=== PATIENT | female | born 1985 | race Caucasian/White ===

== ENCOUNTER 2019-06-30 09:27 | Outpatient (REF) | payer MEDICARE, MEDICAID, SELFPAY ==
[2019-06-30 13:24] LABS: Chol HDL Ratio 2.24 mg/dL (0.0-4.40); Cholesterol 197 mg/dL (0-200); Glucose 116 mg/dL (65-115); HDL Cholesterol 88 mg/dL (60-100); LDL Cholesterol Calculated 97 mg/dL (50-129); Triglycerides 59 mg/dL (0-150)
[2019-06-30 14:15] LABS: Estmated Average Glucose 103; Hemoglobin A1C 5.2 % (4.0-6.0)
== END 2019-06-30 09:28 | disposition home or self-care (01) ==
LOC: LAB 09:27
PROVIDERS: Family Provider Family Medicine; Visit Provider Dermatology
DX: Z01.89 Encounter for other specified special examinations (principal)
CPT/HCPCS: 80061; 82947; 83036

== ENCOUNTER 2020-02-14 12:46 | Emergency (ER) | payer MEDICARE, MEDICAID, SELFPAY ==
--- NOTE | 2020-02-14 12:53 | XRR_ITS ---
PROCEDURE INFORMATION: Exam: XR Chest, 1 View Exam date and time: 02/14/2020 12:54 PM Age: 34 years old Clinical indication: Chest pain; Type not specified. TECHNIQUE: Imaging protocol: XR of the chest Views: 1 view. COMPARISON: No relevant prior studies available. FINDINGS: Lungs: No lung consolidation or pulmonary edema. Pleural space: No pleural effusion or pneumothorax. Heart/Mediastinum: The cardiac silhouette is not enlarged. The mediastinal contours are normal. Bones/joints: No acute osseous abnormality. XR/XR chest 1V portable [id number] IMPRESSION: Normal.
--- NOTE | 2020-02-14 12:53 | ECG_ITS ---
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 Measurements Intervals [place] Rate: 83 P: 47 RI: 157 QRS: 63 QRSD: 127 T: 47 QT: 347 QTc: 410 Interpretive Statements SINUS RHYTHM RIGHT BUNDLE BRANCH BLOCK [120+ ms QRS DURATION, UPRIGHT V1, 40+ ms S IN I/aVL/V4/V5/V6] No previous ECG available for comparison Electronically Signed On 02-14-2020 13:53:11 CDT by Preethi Buchanan M.D. [id number] f
[2020-02-14 12:58] VITALS: BP 119/79; PULSE 85; RESP 18; TEMP 36.6; O2SAT 99; BMI 30.4
--- NOTE | 2020-02-14 13:14 | ED_ITS ---
HPI - General Adult General: Chief complaint: General Medical Stated complaint: covid +, CP, cough, fatigue Time Seen by Provider: 02/14/20 13:02 Source: patient Mode of arrival: ambulatory Limitations: no limitations History of Present Illness: HPI narrative: 34-year-old female who states she has been feeling ill over the last week. She tested positive for COVID on Wednesday. She states she has had low-grade fevers along with slight chest pain. Denies any worsening or improving factors. Patient's vital signs here are normal. She denies any vomiting or diarrhea. Associated symptoms: Reports chest pain and dyspnea; Deny headache(s), nausea, rash or vomiting Review of Systems Const: Denies: fever(s), chills, body aches or change in appetite Eyes: Denies: blurry vision or eye discomfort ENMT: Denies: throat pain or dental pain Card: Reports: chest pain Resp: Reports: dyspnea GI: Denies: abdominal pain, nausea, vomiting or diarrhea : Denies: dysuria Musc: Denies: neck pain or back pain Skin/Breast: Denies: rash Neuro: Denies: headache(s) Psych: Denies: depression Jagdish/Lymph: Denies: easy bruising All/Imm: Denies: urticaria PFSH ED PFSH: Social History Smoking and tobacco status: never smoked Alcohol intake: never Substance/Drug Use: never Physical Exam Const: COMMON NORMALS: no acute distress, patient oriented x3 and healthy appearing HENMT: COMMON NORMALS: normocephalic and atraumatic HEAD & SCALP: normocephalic and atraumatic Eye: COMMON NORMALS: Equal, round and reactive pupils present and EOMs intact bilaterally PUPIL: Yes Equal, round and reactive pupils present Neck/C-Spine: COMMON NORMALS: full ROM and supple Chest: COMMONS NORMALS: normal inspection of the chest and normal palpation of entire chest wall Resp: COMMON NORMALS: normal respiratory effort, No retractions, No use of accessory muscles and clear to auscultation bilaterally AUSCULTATION: clear to auscultation bilaterally Cardio: COMMON NORMALS: regular rate, regular rhythm and No murmurs present (Cardio) RATE: regular rate RHYTHM: regular rhythm GI: COMMON NORMALS: Normal to inspection, nondistended, normoactive bowel sounds present, Soft to palpation, non-tender and no masses PALPATION: Yes Soft to palpation Extremity: COMMON NORMALS: normal to inspection and full ROM Neuro: COMMON NORMALS: patient oriented x3, moves all extremities and no focal motor deficits Psych: COMMON NORMALS: mental status grossly normal, Normal thought process present and cooperative THOUGHT PROCESS: Normal thought process present Skin: COMMON NORMALS: no rashes or lesions noted and no wounds GENERAL SKIN EXAM: no rashes or lesions noted Course Vital Signs: Vital signs: Vital Signs Temperature 97.8 F 02/14/20 12:58 Pulse Rate 86 02/14/20 13:34 Respiratory Rate 17 02/14/20 13:34 Blood Pressure 124/74 02/14/20 13:34 Pulse Oximetry 98 02/14/20 13:34 MDM - General Adult MDM Narrative: Medical decision making narrative: Lima presents here with cough chest pain and fever. She is also having some slight weakness is likely all from COVID. Her blood work daily and troponin here is normal. X-ray is normal as well. Patient's vital signs including oxygen saturation of been normal. She is stable for discharge and is to follow-up with PCP and return if worsening. Lab Data: Labs: Lab Results 02/14/20 02/14/20 02/14/20 Range/Units 13:15 13:15 13:15 WBC 6.2 (4.0-10.0) 10^3/ uL RBC 4.58 (4.1-5.3) 10^6/u L Hgb 13.7 (11.5-15.3) g/dL Hct 42.4 (37.0-47.0) % MCV 92.6 (81-99) fL MCH 29.9 (28.0-34.0) pg MCHC 32.3 (30.0-36.0) g/dL RDW 12.6 (12.1-15.1) % Plt Count 217 (130-400) 10^3/c mm MPV 9.6 (7.4-10.4) fL Neut % (Auto) 55.9 % Lymph % (Auto) 36.4 % [place] % (Auto) 6.5 % Eos % (Auto) 0.6 % Baso % (Auto) 0.3 % Neut # (Auto) 3.44 (1.8-7.7) 10^3/u L Lymph # (Auto) 2.2 (0.8-4.8) 10^3/u L [place] # (Auto) 0.4 (0.2-0.9) 10^3/u L Eos # (Auto) 0.0 (0.0-0.8) 10^3/u L Baso # (Auto) 0.0 (0.0-0.1) 10^3/u L Nucleated RBC % (a uto) 0 % Nucleated RBCs # 0.0 /100WBC Sodium 139 (136-145) mmol/L Potassium 3.8 (3.5-5.1) mmol/L Chloride 107 (98-107) mmol/L Carbon Dioxide 22 (22-29) mmol/L Anion Gap 13.8 (5-19) BUN 10 (6-20) mg/dL Creatinine 0.9 (0.5-0.9) mg/dL Glucose 101 (65-115) mg/dL Calculated Osmolal ity 287 (285-295) mOsm/k g Calcium 9.4 (8.5-10.5) mg/dL Total Bilirubin 0.4 (0.15-1.2) mg/dL AST 28 (0-32) U/L Alkaline Phosphata se 70 (35-105) IU/L Troponin T Baselin e 6 (0-10) ng/L Total Protein 7.4 (6.6-8.7) g/dL Albumin 4.4 (3.5-5.2) g/dL Globulin 3.0 (1.3-4.6) g/dL Imaging Data^: CXR: Radiologist's impression: [address] [address] XRay Report Signed Patient: Shiloh Heredia Unit #: [id number] : 1985 Age/Sex: 34 / F ADM Date: 02/14/20 Loc: ER Room/Bed: Attending Dr: Ordering Provider/Ordering MD: Jose Sawyer MD Date of Service: 02/14/20 Procedure(s): XR chest 1V portable [id number] Accession Number(s): [id number] Report Number: [id number] PROCEDURE INFORMATION: Exam: XR Chest, 1 View Exam date and time: 02/14/2020 12:54 PM Age: 34 years old Clinical indication: Chest pain; Type not specified. TECHNIQUE: Imaging protocol: XR of the chest Views: 1 view. COMPARISON: No relevant prior studies available. FINDINGS: Lungs: No lung consolidation or pulmonary edema. Pleural space: No pleural effusion or pneumothorax. Heart/Mediastinum: The cardiac silhouette is not enlarged. The mediastinal contours are normal. Bones/joints: No acute osseous abnormality. XR/XR chest 1V portable [id number] IMPRESSION: Normal. EKG Data^: EKG 1: Attestation: I personally reviewed and interpreted this EKG as follows: EKG interpretation date: 02/14/20 EKG interpretation time: 13:09 Interpretation: nsr hr [address] with no st or t wave abnormalities qrs 127 [id number] Computer generated interpretation: Chest X-Ray 02/14/20 12:53 IMPRESSION: Normal. Discharge Plan Discharge Patient Disposition: Home Clinical Impression: COVID-19 Condition: Stable Prescriptions: No Action zonisamide 100 mg capsule 100 mg PO BEDTIME RF: 0 dextroamphetamine-amphetamine 10 mg capsule,extended release 24hr 1 cap PO DAILY RF: 0 Aleve-D Sinus and Cold 220-120 mg Tablet Extended Release 12 Hr 1 tab PO DAILY RF: 0 bupropion HCl 300 mg tablet extended release 24 hr 300 mg PO DAILY RF: 0 Discharge Orders: Discharge Order (Routine); Ordered 02/14/20 Ordered By: Jose Sawyer Referrals: Justin Corley MD [Family Provider] - Discharge Diet: Advance as tolerated Discharge Activity: Resume usual activity Patient Instructions: Chest Pain (ED) Coding Level of Care Code ED Pencil Inspector for Chg Fwd Exam Comprehensive
[2020-02-14 13:22] LABS: Basophils % 0.3 %; Eosinophils % 0.6 %; Hematocrit 42.4 % (37.0-47.0); Hemoglobin 13.7 g/dL (11.5-15.3); Lymphocytes # 2.2 10^3/uL (0.8-4.8); Lymphocytes % 36.4 %; Mean Corpuscular HGB Conc 32.3 g/dL (30.0-36.0); Mean Corpuscular Hemoglobin 29.9 pg (28.0-34.0); Mean Corpuscular Volume 92.6 fL (81-99); Mean Platelet Volume 9.6 fL (7.4-10.4); Monocytes # 0.4 10^3/uL (0.2-0.9); Monocytes % 6.5 %; Neutrophils # 3.44 10^3/uL (1.8-7.7); Neutrophils % 55.9 %; Nucleated Red Blood Cells % 0 %; Platelet Count 217 10^3/cmm (130-400); Red Blood Count 4.58 10^6/uL (4.1-5.3); Red Cell Distribution Width 12.6 % (12.1-15.1); White Blood Count 6.2 10^3/uL (4.0-10.0)
[2020-02-14] MEDS: sodium chloride 0.9% 1,000 ML 999 ML IV (13:29)
[2020-02-14 13:34] VITALS: BP 124/74; PULSE 86; RESP 17; O2SAT 98
[2020-02-14 13:46] LABS: Alanine Aminotransferase 62 U/L (0-33); Albumin Level 4.4 g/dL (3.5-5.2); Alkaline Phosphatase 70 IU/L (35-105); Anion Gap 13.8 (5-19); Aspartate Amino Transferase 28 U/L (0-32); Blood Urea Nitrogen 10 mg/dL (6-20); Calcium 9.4 mg/dL (8.5-10.5); Carbon Dioxide 22 mmol/L (22-29); Chloride 107 mmol/L (98-107); Glomerular Filtration Rate 72.6 mL/min (90-130); Glucose 101 mg/dL (65-115); Osmolality Calculated 287 mOsm/kg (285-295); Potassium 3.8 mmol/L (3.5-5.1); Sodium 139 mmol/L (136-145); Total Bilirubin 0.4 mg/dL (0.15-1.2); Total Protein 7.4 g/dL (6.6-8.7)
[2020-02-14 13:50] LABS: Troponin(5th) Baseline 6 ng/L (0-10)
[2020-02-14 14:12] VITALS: BP 120/77; PULSE 81; RESP 18; O2SAT 99
== END 2020-02-14 14:13 | disposition home or self-care (01) ==
PROVIDERS: Emergency Provider Emergency Medicine; Family Provider Family Medicine
DX: U07.1 COVID-19 (principal)
CPT/HCPCS: 12345; 71045; 80053; 84484; 85025; 93005; 96360; 99283; 99284; J7030

== ENCOUNTER 2020-07-12 13:15 | Outpatient (CLI) | payer MEDICARE, MEDICAID, SELFPAY ==
--- NOTE | 2020-07-12 13:17 | MM_ITS ---
WS: [id number] SCREENING DIGITAL MAMMOGRAM WITH CAD HISTORY: SCREENING COMPARISON: None available. Bilateral CC and MLO views submitted. Computer aided detection analyzed. Breast composition: The breasts are extremely dense, which lowers the sensitivity of mammography. Wel l-circumscribed 15 x 18 mm nodule in the RIGHT breast at 9:00 anteriorly. There is additional asymmet ry in the posterior lateral breast towards the axillary tail measuring 14 mm. Otherwise very dense br east tissue. No calcifications or architectural distortion. MM/[place] [id number] IMPRESSION: BI-RADS: 0-Incomplete: Need additional imaging evaluation FOLLOW UP: Need Additional Imaging RIGHT breast: Spot compression views (CC and MLO). True ML. Ultrasound to follo w if abnormality persists.
== END 2020-07-12 13:16 | disposition home or self-care (01) ==
LOC: RADSHAW 13:16
PROVIDERS: PCP Family Medicine; Visit Provider Family Medicine
DX: Z12.31 Encounter for screening mammogram for malignant neoplasm of breast (principal); N63.15 Unspecified lump in the right breast, overlapping quadrants
CPT/HCPCS: 77067

== ENCOUNTER 2020-07-23 08:31 | Outpatient (CLI) | payer MEDICARE, MEDICAID, SELFPAY ==
--- NOTE | 2020-07-23 08:35 | US_ITS ---
WS: [id number] ADDITIONAL VIEWS RIGHT BREAST RIGHT breast ultrasound, limited HISTORY: ABNORMAL MAMMOGRAM COMPARISON: 07/12/2020 Compression views right CC and MLO projection. True ML also submitted. Ovoid nodule persists at 9:00 in the anterior breast measuring 18 mm in diameter. The asymmetry against the posterior chest wall re solves. RIGHT breast ultrasound, limited. Ultrasound directed to the upper outer quadrant. The large nodule seen by mammography corresponds to a mass at 1 cm from the nipple at 9:00 measuring 1.8 x 2.3 x 1.0 cm. A slightly lobulated cyst with a fibroadenoma. There are additional smaller similar hypoechoic masses at 9-10 o'clock. There is a tin y cyst at 12:00 axis diameter 4 mm. US/US breast RT limited* [id number] IMPRESSION: BI-RADS: 2-Benign FOLLOW-UP: Age 42 There are several masses in the RIGHT breast along the 9-10 o'clock axis. These are all similar and most consistent with fibroadenomas. No additional workup a t this time is thought necessary. Patient also describes benign biopsy in the L EFT breast. Alternatively, if the patient desires the largest mass could easily be biopsied for pathologic correlation.
== END 2020-07-23 08:32 | disposition home or self-care (01) ==
LOC: RADSHAW 08:33
PROVIDERS: PCP Family Medicine; Visit Provider Family Medicine
DX: R92.8 Other abnormal and inconclusive findings on diagnostic imaging of breast (principal); N63.15 Unspecified lump in the right breast, overlapping quadrants
CPT/HCPCS: 76642; 77065

== ENCOUNTER → 2021-04-04 10:48 | Outpatient (BNVA) | payer MEDICARE, MEDICAID, SELFPAY | PROVIDERS: PCP Family Medicine; Visit Provider Internal Medicine | DX: L68.0 Hirsutism (principal); R53.83 Other fatigue; R79.89 Other specified abnormal findings of blood chemistry; Z98.890 Other specified postprocedural states; S06.9X9S Unspecified intracranial injury with loss of consciousness of unspecified duration, sequela; X58.XXXS Exposure to other specified factors, sequela | CPT/HCPCS: 99204 ==

== ENCOUNTER 2021-06-09 15:06 | Outpatient (CLI) | payer MEDICARE, MEDICAID, SELFPAY ==
--- NOTE | 2021-06-09 15:45 | US_ITS ---
WS: [id number] TRANSVAGINAL PELVIC ULTRASOUND HISTORY: rule out malignancy COMPARISON: None available. Uterus: 7.4 cm x 6.2 cm x 4.8 cm. Retroverted uterus. Uterus is difficult to visualize due to the ret roversion. Heterogeneous mass with shadowing slightly hyperechoic to the adjacent myometrium. This ma ss is centered in the central uterus distorting the endometrium. Mass measures approximately 5.4 x 3. 8 x 3.6 cm. Endometrium: The endometrium is not visualized as a separate structure. There is a large mass within the central uterus. There is shadowing from this mass to suspect this is probably a submucosal fibroi d displacing the endometrium. Right ovary: 3.2 cm x 1.6 cm x 2.9 cm. Normal size ovary. There are several small peripheral follicle s. Normal vascularity. Left ovary: 2.9 cm x 2.4 cm x 2.1 cm. Normal size ovary with small peripheral follicles. Normal vascu larity. Trace free fluid. US/US transvaginal [id number] IMPRESSION: 1. Enlarged retroverted uterus. 2. There is large mass in the central uterus distorting the endometrium. Favor this is probably a submucosal fibroid measuring 5.4 x 3.8 x 3.6 cm. 3. Normal size ovary with multiple small peripheral follicles.
== END 2021-06-09 15:07 | disposition home or self-care (01) ==
LOC: RAD 15:11
PROVIDERS: PCP Family Medicine; Visit Provider Internal Medicine
DX: L68.0 Hirsutism (principal); R79.89 Other specified abnormal findings of blood chemistry; Z98.890 Other specified postprocedural states; N85.4 Malposition of uterus; N85.8 Other specified noninflammatory disorders of uterus
CPT/HCPCS: 76830

== ENCOUNTER → 2021-06-17 14:35 | Outpatient (BNVA) | payer MEDICARE, MEDICAID, SELFPAY | PROVIDERS: PCP Family Medicine; Visit Provider Internal Medicine | DX: E28.2 Polycystic ovarian syndrome (principal); L68.0 Hirsutism; R53.82 Chronic fatigue, unspecified; R79.89 Other specified abnormal findings of blood chemistry; D24.1 Benign neoplasm of right breast; R63.5 Abnormal weight gain; Z68.29 Body mass index [BMI] 29.0-29.9, adult | CPT/HCPCS: 99215 ==

== ENCOUNTER → 2021-12-10 14:44 | Outpatient (BNVA) | payer MEDICARE, MEDICAID, SELFPAY | PROVIDERS: PCP Family Medicine; Visit Provider Internal Medicine | DX: R53.82 Chronic fatigue, unspecified (principal); L68.0 Hirsutism; R79.89 Other specified abnormal findings of blood chemistry; E28.2 Polycystic ovarian syndrome; D24.1 Benign neoplasm of right breast; E88.81 Metabolic syndrome and other insulin resistance; R63.5 Abnormal weight gain; Z68.28 Body mass index [BMI] 28.0-28.9, adult | CPT/HCPCS: 99214 ==

== ENCOUNTER → 2022-03-24 13:40 | Outpatient (BNVA) | payer MEDICARE, MEDICAID, SELFPAY | PROVIDERS: PCP Family Medicine; Visit Provider Otolaryngology | DX: H91.93 Unspecified hearing loss, bilateral (principal); H93.13 Tinnitus, bilateral; H92.03 Otalgia, bilateral; M26.623 Arthralgia of bilateral temporomandibular joint | CPT/HCPCS: 99203 ==

== ENCOUNTER 2022-06-12 14:04 | Outpatient (CLI) | payer MEDICARE, MEDICAID, SELFPAY ==
--- NOTE | 2022-06-12 14:13 | MR_ITS ---
WS: [id number] MRI HEAD WITH CONTRAST TECHNIQUE: Sagittal T1, T2 axial, T2 axial FLAIR, axial susceptibility weighted imaging, axial diffus ion weighted images, and coronal T2 images were obtained. Pre and post-T1 axial and post T1 coronal i mages. ADC and FSPGR images. CLINICAL INFORMATION: CLOSED HEAD INJURY COMPARISON: FINDINGS: No evidence of restricted diffusion to suggest acute ischemia. Ventricular system and basal cisterns are patent. No hemosiderin on the susceptibly weighted images. Normal posterior fossa. Norm al vascular flow voids at the skull base. No extra-axial fluid collections. No evidence of mass or ma ss effect. Paranasal sinuses and mastoid air cells are well aerated. Normal posterior nasopharynx. Left inferior frontal encephalomalacia with gliosis is unchanged in appearance since the prior studie s. This is compatible with prior trauma. Additional stable areas of encephalomalacia and gliosis in the left occipital lobe. Additional small areas of encephalomalacia and gliosis in the left posterior frontal lobe and left frontal parietal junction peripherally also likely due to prior trauma. Small amount of gliosis in the left temporal lobe laterally is unchanged. No abnormal gadolinium enhancement. Normal optic chiasm and pituitary infundibulum. No other signific ant findings. MR/MR head wo/w con [id number] IMPRESSION: 1. Encephalomalacia and gliosis in the left inferior frontal lobe unchanged si nce the prior MRI and CT compatible with prior trauma 2. Stable encephalomalacia with gliosis in the left occipital lobe, left poste rior frontal lobe, left frontoparietal junction, and left temporal lobe lateral ly 3. No abnormal gadolinium enhancement. 4. Paranasal sinuses and mastoid air cells are well aerated. 5. No other acute findings.
[2022-06-12] MEDS: gadobenate dimeglumine 20 mL vial IV (14:51)
== END 2022-06-12 14:05 | disposition home or self-care (01) ==
LOC: RAD 14:07
PROVIDERS: PCP Family Medicine; Visit Provider Family Medicine
DX: S09.90XA Unspecified injury of head, initial encounter (principal); X58.XXXA Exposure to other specified factors, initial encounter; G93.89 Other specified disorders of brain
CPT/HCPCS: 70553; A9577

== ENCOUNTER → 2022-10-05 14:21 | Outpatient (BNVA) | payer MEDICARE, MEDICAID, SELFPAY | PROVIDERS: PCP Family Medicine; Visit Provider Internal Medicine | DX: R79.89 Other specified abnormal findings of blood chemistry (principal); R53.82 Chronic fatigue, unspecified; L68.0 Hirsutism; E28.2 Polycystic ovarian syndrome; E88.81 Metabolic syndrome and other insulin resistance; Z68.25 Body mass index [BMI] 25.0-25.9, adult; R63.5 Abnormal weight gain | CPT/HCPCS: 99214 ==

== ENCOUNTER 2023-04-03 00:07 | Emergency (ER) | payer MEDICARE, MEDICAID, SELFPAY ==
[2023-04-03] VITALS (7 sets, daily range): BP systolic 112–160; BP diastolic 69–100; PULSE 85–107; RESP 18–24; TEMP 36.4; O2SAT 94–100; BMI 28.8
--- NOTE | 2023-04-03 00:21 | XRR_ITS ---
PROCEDURE INFORMATION: Exam: XR Chest Exam date and time: 04/03/2023 12:41 AM Age: 37 years old Clinical indication: Shortness of breath; Patient HX: C/O palpitations with SOB. TECHNIQUE: Imaging protocol: Radiologic exam of the chest. Views: 1 view. COMPARISON: CR XR chest 1V portable [id number] 02/14/2020 1:15 PM FINDINGS: Lungs: Unremarkable. No consolidation. Pleural spaces: Unremarkable. No pleural effusion. No pneumothorax. Heart/Mediastinum: Unremarkable. No cardiomegaly. Bones/joints: Unremarkable. XR/XR chest 1V portable [id number] IMPRESSION: No acute findings.
--- NOTE | 2023-04-03 00:22 | ECG_ITS ---
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 Measurements Intervals [place] Rate: 94 P: 73 IA: 159 QRS: 85 QRSD: 126 T: 49 QT: 332 QTc: 415 Interpretive Statements SINUS RHYTHM RIGHT BUNDLE BRANCH BLOCK [120+ ms QRS DURATION, UPRIGHT V1, 40+ ms S IN I/aVL/V4/V5/V6] Compared to ECG 02/14/2020 13:09:39 No significant changes Electronically Signed On 04-05-2023 18:45:45 DIRECTOR OF SUSTAINABLE DESIGN by Preethi Buchanan M.D. [id number] f
[2023-04-03] MEDS: metoprolol tartrate 1 mg/1 mL SDV 5 mL 2.5 MG IVP (00:39)
[2023-04-03] MEDS: sodium chloride 0.9% 1,000 ML 999 ML IV (00:39)
[2023-04-03 00:42] LABS: Basophils # 0.1 10^3/uL (0.0-0.1); Basophils % 0.5 %; Eosinophils # 0.1 10^3/uL (0.0-0.8); Eosinophils % 0.7 %; Hematocrit 43.1 % (36-47); Lymphocytes # 5.4 10^3/uL (0.8-4.8); Lymphocytes % 50.8 %; Mean Corpuscular HGB Conc 33.2 g/dL (30-55); Mean Corpuscular Volume 93.5 fl (85-98); Mean Platelet Volume 9.6 fL (7.4-10.4); Monocytes # 0.5 10^3/uL (0.2-0.9); Neutrophils # 4.58 10^3/uL (1.8-7.7); Neutrophils % 42.8 %; Nucleated Red Blood Cells % 0 %; Platelet Count 254 10^3/cmm (157-399); Red Blood Count 4.61 10^6/uL (3.85-5.65)
--- NOTE | 2023-04-03 00:50 | PC.NURSE ---
Assisted pt from bed to bedside commode and back to bed
[2023-04-03 00:58] LABS: Lactic Sepsis W/Reflex 1.4 mmol/L (0.5-2.2)
[2023-04-03 00:59] LABS: Troponin(5th) Baseline < 6 ng/L (0-10)
[2023-04-03 01:09] LABS: Alanine Aminotransferase 27 U/L (0-33); Albumin Level 4.5 g/dL (3.5-5.2); Alcohol Level 271 mg/dL (0-10); Alkaline Phosphatase 53 U/L (35-105); Anion Gap 14.6 (5-19); Aspartate Amino Transferase 28 U/L (0-32); Blood Urea Nitrogen 8 mg/dL (6-20); Calcium 9.5 mg/dL (8.5-10.5); Carbon Dioxide 25 mmol/L (22-29); Chloride 100 mmol/L (98-107); Globulin 2.7 g/dL (1.3-4.6); Glomerular Filtration Rate 113.8 mL/min (90-130); Glucose 95 mg/dL (65-115); Magnesium 2.2 mg/dL (1.7-2.3); NT Pro B Type Natriuretic Pept 36 pg/mL (0-125); Osmolality Calculated 280 mOsm/kg (285-295); Potassium 3.6 mmol/L (3.5-5.1); Slide Review Slide Review Perform; Sodium 136 mmol/L (136-145); Thyroid Stimulating Hormone 3.28 uIU/mL (0.27-4.20); Total Bilirubin 0.4 mg/dL (0.15-1.2); Total Protein 7.2 g/dL (6.6-8.7)
[2023-04-03 01:29] LABS: Add Urine Microscopic? NO; Charge for UA Resulting for Rev
--- NOTE | 2023-04-03 01:29 | ED_ITS ---
HPI - Arrhythmia/Palpitations General: Chief Complaint: Arrhythmia/Palpitations Stated Complaint: sob, fast HR Time Seen by Provider: 04/03/23 00:21 History of Present Illness: 37-year-old female presenting with near syncopal episodes. She has had more than 1 of these this evening. reports that they were at a shrimp boil earlier in the evening. She drank several beers. She began to complain of pain to her left and then her right side. Currently her complaint is left lower quadrant/pelvic pain. She never really complained of chest discomfort, but does have a history of tachycardia and complained of palpitations. 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 Head injury Surgical History H/O tubal ligation History of endometrial ablation Family History Father Diabetes Hx of nursing home use of blood thinners Pacemaker Heart problem Detached retina Mother FHx: total knee replacement Hypertension Social History Smoking and tobacco/nicotine status: never used tobacco/nicotine Second hand smoke exposure: No Alcohol intake: never Substance/Drug Use: never Adopted: No Caregiver/support person: No Lives independently: No Household members: family Housing: House Marital status: Single Number of children: 0 Highest education level completed: Associate Degree: Academic Program service: No Current occupational status: employed Sexually active: Yes Do you think of yourself as: Straight/Heterosexual Current gender identity: Female Dana/Jehovah'S Witness: Restorationism Special dana needs: No Agree to transfusion: Yes Physical Exam Const: COMMON NORMALS: no acute distress GENERAL APPEARANCE: cooperative; not ill appearing and not frail appearing HENMT: COMMON NORMALS: normocephalic, atraumatic and Normal external nose present HEAD & SCALP: normocephalic and atraumatic FACE & SINUS: normal facial exam and face symmetric NOSE: Normal external nose present Eye: COMMON NORMALS: Equal, round and reactive pupils present and EOMs intact bilaterally PUPIL: Yes Equal, round and reactive pupils present Neck/C-Spine: GENERAL: Yes trachea midline Chest: CHEST: Yes Symmetrical chest wall rise Resp: COMMON NORMALS: normal respiratory effort, No retractions, No use of accessory muscles and clear to auscultation bilaterally AUSCULTATION: clear to auscultation bilaterally Cardio: COMMON NORMALS: regular rate and regular rhythm RATE: regular rate RHYTHM: regular rhythm GI: COMMON NORMALS: Normal to inspection, nondistended, normoactive bowel sounds present Extremity: COMMON NORMALS: no pedal edema Neuro: CHARLINE COMA SCALE: document GCS findings [place] coma scale eye opening: Spontaneous [place] coma scale verbal response: Orientated [place] coma scale motor response: Obey commands [place] coma scale total score: 15 SENSORY EXAM: Yes extremities (intact) Psych: COMMON NORMALS: speech normal SPEECH: Yes normal speech Skin: COMMON NORMALS: no rashes or lesions noted GENERAL SKIN EXAM: no rashes or lesions noted Course Vital Signs: Vital signs: Vital Signs Temperature 97.6 F 04/03/23 00:11 Pulse Rate 88 04/03/23 03:00 Respiratory Rate 18 04/03/23 03:00 Blood Pressure 112/69 04/03/23 03:00 Pulse Oximetry 96 04/03/23 03:00 Oxygen Delivery Me thod Room Air 04/03/23 00:11 MDM - Arrhythmia/Palpitations Medical Decision Making Visually pulse was somewhat elevated, after 1 L of fluid, pulses come down to 90. Blood pressure 132/90. Saturations are normal. Respirations are normal. She is afebrile. She does have some tenderness to the left lower quadrant/pelvis. CBC is normal. BMP is normal. Liver enzymes are normal. Lactic acid is 1.4. Chest x-ray is nonacute. TSH is 3.3. Ethyl alcohol level is 271. Urinalysis is pending. If there is significant hematuria, 1 could con tape keller operator renal protocol CT. Urinalysis shows no hematuria. Second troponin is stable. She will be allowed home. Lab Data 04/03/23 00:18 04/03/23 00:18 Radiology Impressions Chest X-Ray 04/03/23 00:21 IMPRESSION: No acute findings. Laboratory Results WBC 10.70 10^3/uL (3.29-11.43) 04/03/23 00:18 RBC 4.61 10^6/uL (3.85-5.65) 04/03/23 00:18 Hgb 14.30 g/dL (11.27-16.99) 04/03/23 00:18 Hct 43.1 % (36-47) 04/03/23 00:18 MCV 93.5 fl (85-98) 04/03/23 00:18 MCH 31.0 pg (27-33) 04/03/23 00:18 MCHC 33.2 g/dL (30-55) 04/03/23 00:18 RDW 13.0 % (12.1-15.1) 04/03/23 00:18 Plt Count 254 10^3/cmm (157-399) 04/03/23 00:18 MPV 9.6 fL (7.4-10.4) 04/03/23 00:18 Neut % (Auto) 42.8 % 04/03/23 00:18 Lymph % (Auto) 50.8 % 04/03/23 00:18 [place] % (Auto) 5.0 % 04/03/23 00:18 Eos % (Auto) 0.7 % 04/03/23 00:18 Baso % (Auto) 0.5 % 04/03/23 00:18 Neut # (Auto) 4.58 10^3/uL (1.8-7.7) 04/03/23 00:18 Lymph # (Auto) 5.4 10^3/uL (0.8-4.8) H 04/03/23 00:18 [place] # (Auto) 0.5 10^3/uL (0.2-0.9) 04/03/23 00:18 Eos # (Auto) 0.1 10^3/uL (0.0-0.8) 04/03/23 00:18 Baso # (Auto) 0.1 10^3/uL (0.0-0.1) 04/03/23 00:18 Nucleated RBC % (auto) 0 % 04/03/23 00:18 Nucleated RBCs # 0.0 /100WBC 04/03/23 00:18 Sodium 136 mmol/L (136-145) 04/03/23 00:18 Potassium 3.6 mmol/L (3.5-5.1) 04/03/23 00:18 Chloride 100 mmol/L (98-107) 04/03/23 00:18 Carbon Dioxide 25 mmol/L (22-29) 04/03/23 00:18 Anion Gap 14.6 (5-19) 04/03/23 00:18 BUN 8 mg/dL (6-20) 04/03/23 00:18 Creatinine 0.6 mg/dL (0.5-0.9) 04/03/23 00:18 GFR Calculation 113.8 mL/min (90-130) 04/03/23 00:18 Glucose 95 mg/dL (65-115) 04/03/23 00:18 Calculated Osmolality 280 mOsm/kg (285-295) L 04/03/23 00:18 Lactic Acid 1.4 mmol/L (0.5-2.2) 04/03/23 00:18 Calcium 9.5 mg/dL (8.5-10.5) 04/03/23 00:18 Magnesium 2.2 mg/dL (1.7-2.3) 04/03/23 00:18 Total Bilirubin 0.4 mg/dL (0.15-1.2) 04/03/23 00:18 AST 28 U/L (0-32) 04/03/23 00:18 ALT 27 U/L (0-33) 04/03/23 00:18 Alkaline Phosphatase 53 U/L (35-105) 04/03/23 00:18 Troponin T Baseline < 6 ng/L (0-10) 04/03/23 00:18 Troponin T 120 Minute 6.0 ng/L (0-10) 04/03/23 02:16 Delta Troponin T 0.32485 ABS# (0-10) 04/03/23 02:16 NT-Pro-B Natriuret Pep 36 pg/mL (0-125) 04/03/23 00:18 Total Protein 7.2 g/dL (6.6-8.7) 04/03/23 00:18 Albumin 4.5 g/dL (3.5-5.2) 04/03/23 00:18 Globulin 2.7 g/dL (1.3-4.6) 04/03/23 00:18 TSH 3.28 uIU/mL (0.27-4.20) 04/03/23 00:18 HCG, Qual Negative (Negative) 04/03/23 00:18 Urine Color Light yellow (Yellow) 04/03/23 00:46 Urine Appearance Clear (CLEAR) 04/03/23 00:46 Urine pH 7 (5-7) 04/03/23 00:46 Ur Specific [place] 1.005 (1.005-1.030) 04/03/23 00:46 Urine Protein Neg (Negative) 04/03/23 00:46 Urine Glucose (UA) Norm (Normal) 04/03/23 00:46 Urine Ketones Negative (Negative) 04/03/23 00:46 Urine Blood Neg (Negative) 04/03/23 00:46 Urine Nitrate Negative (Negative) 04/03/23 00:46 Urine Bilirubin Neg (Negative) 04/03/23 00:46 Urine Urobilinogen Neg mg/dL (Negative) 04/03/23 00:46 Ur Leukocyte Esterase Negative (Negative) 04/03/23 00:46 Ethyl Alcohol 271 mg/dL (0-10) H 04/03/23 00:18 All radiology interpretation(s) finalized by discharge Discharge Plan Discharge Patient Disposition: Home Clinical Impression: Sinus tachycardia, Alcohol intoxication Condition: Stable Prescriptions: No Action Ozempic 0.25 mg or 0.5 mg (2 mg/3 mL) pen injector See Rx Instructions .ROUTE .COMPLEX Qty: 12 3RF Dose Instruction: inject 0.5mg SUBCUTANEOUSLY every week Rx Instructions: inject 0.5mg SUBCUTANEOUSLY every week zonisamide 100 mg capsule 100 mg PO BEDTIME dextroamphetamine-amphetamine 10 mg capsule,extended release 24hr 1 cap PO DAILY Aleve-D Sinus and Cold 220-120 mg Tablet Extended Release 12 Hr 1 tab PO DAILY bupropion HCl 300 mg tablet extended release 24 hr 300 mg PO DAILY Discharge Orders: Discharge ED (Routine); Ordered 04/03/23 Ordered By: Cortez Anna Referrals: Chilo Hopkins MD [Physician] - Justin Corley MD [Primary Care Provider] - Patient Instructions: Tachycardia (ED) Activity Restrictions/Additional Instructions: Return for chest discomfort, repeated episodes of syncope or passing out, shortness of breath, other concerning symptoms. Case management should contact you regarding a follow-up appointment with cardiology at some point next week. Cardiology's numbers listed above if you do not hear from them. Coding Level of Care Code ED Morale Officer for Karissa Lynn
[2023-04-03 01:35] LABS: HCG, Serum Qual Negative (Negative)
[2023-04-03 01:36] LABS: Urine Appearance Clear (CLEAR); Urine Color Light yellow (Yellow)
[2023-04-03 01:37] LABS: Bilirubin Urine Neg (Negative); Blood Urine Neg (Negative); Glucose Urine UA Norm (Normal); Ketones Urine Negative (Negative); Leukocyte Esterase Urine Negative (Negative); Nitrate Urine Negative (Negative); Protein Urine Neg (Negative); Specific Gravity, Urine 1.005 (1.005-1.030); Urobilinogen Urine Neg (Negative); pH Urine 7 (5-7)
--- NOTE | 2023-04-03 02:22 | ECG_ITS ---
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 Measurements Intervals [place] Rate: 93 P: 63 MI: 158 QRS: 74 QRSD: 125 T: 56 QT: 362 QTc: 452 Interpretive Statements SINUS RHYTHM RIGHT BUNDLE BRANCH BLOCK [120+ ms QRS DURATION, UPRIGHT V1, 40+ ms S IN I/aVL/V4/V5/V6] Compared to ECG 04/03/2023 00:09:27 No significant changes Electronically Signed On 04-05-2023 8:13:25 SALES DONOR RECRUITMENT REPRESENTATIVE by Preethi Buchanan M.D. [id number]
[2023-04-03 03:13] LABS: Troponin 5 2HR Delta 0.00001 ABS# (0-10)
--- NOTE | 2023-04-05 07:31 | DCPLANNER ---
Message was sent to cardiology for follow up on dx Tachycardia.
--- NOTE | 2023-04-05 10:22 | PC.SOCIAL ---
Cardiology Referral Received a phone call from patient regarding a follow up with cardiology. CM reviewed notes and spoke with AKIKO Tucker in ER. Referral message sent to Cardiology front office coordinator with high priority. Called cardiology and spoke with Jackelin to alert of referral.
--- NOTE | 2023-04-05 14:23 | PC.SOCIAL ---
Cardiology Referral Spoke with Evelina at [facility] who reports patient could be seen at 2:30. Spoke with patient's and they would prefer an appointment sooner if possible. Spoke with [facility] who reports their earliest is . Pallavi reports May 05. Jane's online booking shows availablility this week, however when calling for appt they state that they have to review the referral first. CM questioned the process for online booking for new patient's then, [facility] staff member reports that she is unsure of that process. Referral faxed at this time, requesting that they call patient as soon as possible. CM will allow Jane time to review and follow up tomorrow to see if they have an appt date for patient.
== END 2023-04-03 04:12 | disposition home or self-care (01) ==
PROVIDERS: Emergency Provider Emergency Medicine; PCP Family Medicine
DX: R00.0 Tachycardia, unspecified (principal); F10.129 Alcohol abuse with intoxication, unspecified; Y90.8 Blood alcohol level of 240 mg/100 ml or more
CPT/HCPCS: 71045; 80053; 80307; 81003; 83605; 83735; 83880; 84443; 84484; 84703; 85025; 93005; 96361; 96374; 99285; J3490; J7030

== ENCOUNTER 2023-04-04 12:54 | Emergency (ER) | payer MEDICARE, MEDICAID, SELFPAY ==
[2023-04-04 12:55] VITALS: BP 167/106; PULSE 104; RESP 19; TEMP 36.7; O2SAT 100; BMI 21.2
--- NOTE | 2023-04-04 13:04 | ED_ITS ---
HPI - Chest Pain General: Chief Complaint: Chest Pain Stated Complaint: stated chest pain and shortness of breath Time Seen by Provider: 04/04/23 12:57 History of Present Illness: 37-year-old female presents emergency room with the complaint of not feeling very well, dizziness and chest pain that started 1 hour ago. Described the pain as sharp aching sensation across her chest with severity of 7 out of 10. Pain is nonradiating. Upon presents to the emergency room patient was very anxious but denies any nausea, vomiting, dysuria, materia or frequency. Denies any recent cough cold or coughing up blood. No sick contact or recent foreign travel. Associated symptoms: Deny abdominal pain, dyspnea, fever(s), nausea, palpitations, syncope or vomiting Review of Systems General: Reports: 10 or more systems reviewed and unremarkable except in HPI and below Const: Denies: fever(s), chills, body aches, change in appetite, change in weight, fatigue, malaise or night sweats Card: Reports: chest pain and lightheadedness; Denies: palpitations, swelling of feet/ankles, syncope, pre-syncope, dyspnea on exertion, orthopnea or leg pain with exertion Resp: Denies: dyspnea, productive cough, non-productive cough, wheezing, stridor, pain on inspiration or change in phlegm color GI: Denies: abdominal pain, nausea, vomiting, hematemesis, coffee ground emesis, dysphagia, heartburn, early satiety or diarrhea : Denies: flank pain, difficulty voiding or dysuria Psych: Denies: hopelessness, loss of interest, change in appetite, paranoia, memory loss, difficulty concentrating or visual hallucinations [facility] ED PFSH: Medical History ADD (attention deficit disorder) 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 Head injury Surgical History H/O tubal ligation History of endometrial ablation Family History Father Diabetes 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 use of blood thinners Pacemaker Heart problem Detached retina Mother FHx: total knee replacement Hypertension Social History Smoking and tobacco/nicotine status: never used tobacco/nicotine Second hand smoke exposure: No Alcohol intake: never Substance/Drug Use: never Adopted: No Caregiver/support person: No Lives independently: No Household members: family Housing: House Marital status: Single Number of children: 0 Highest education level completed: Associate Degree: Academic Program service: No Current occupational status: employed Sexually active: Yes Do you think of yourself as: Straight/Heterosexual Current gender identity: Female Dana/Denominational: Anabaptist Special dana needs: No Agree to transfusion: Yes Physical Exam Const: COMMON NORMALS: no acute distress, patient oriented x3 and no limitations HENMT: COMMON NORMALS: normocephalic, atraumatic, hearing grossly normal bilaterally, external ears normal, EAC's normal, TM's normal bilaterally, Normal external nose present, Normal nasal mucous membranes and turbinates present, moist oral mucous membranes, oropharynx normal, dentition normal and gingiva normal HEAD & SCALP: normocephalic and atraumatic NOSE: Normal external nose present and Normal nasal mucous membranes and turbinates present EXTERNAL EAR: Yes external ears normal EXTERNAL AUDITORY CANAL: EAC's normal TYMPANIC MEMBRANE: TM's normal bilaterally Neck/C-Spine: COMMON NORMALS: no JVD Chest: COMMONS NORMALS: normal inspection of the chest, normal palpation of entire chest wall, normal inspection of the breasts and normal palpation of the breasts Breast/axilla inspection: Yes normal inspection of the breasts BREAST/AXILLA PALPATION: Yes normal palpation of the breasts Resp: COMMON NORMALS: normal respiratory effort, No retractions, No use of accessory muscles, clear to auscultation bilaterally and percussion normal AUSCULTATION: clear to auscultation bilaterally PERCUSSION: percussion normal Cardio: COMMON NORMALS: no JVD, regular rate, regular rhythm, S1 normal heart sound present, S2 normal heart sound present, No gallops present (Cardio), No clicks present (Cardio), No murmurs present (Cardio), No rub (Cardio) and Peripheral pulses 2+ throughout RATE: regular rate RHYTHM: regular rhythm HEART SOUNDS: S1 normal heart sound present and S2 normal heart sound present PERIPHERAL PULSES: Peripheral pulses 2+ throughout Extremity: COMMON NORMALS: normal to inspection, full ROM, capillary refill normal, no joint enlargement, no clubbing, cyanosis or edema, no calf tenderness and no pedal edema Neuro: COMMON NORMALS: patient oriented x3 Psych: APPEARANCE: Yes grossly normal ATTITUDE: No paranoid, No bizarre, No uncooperative, No Guarded attititude/behavior present, No Belligerent attititude/behavior present and No aggressive ACTIVITY/MOTOR BEHAVIOR: Yes appropriate eye contact MOOD & AFFECT: No apathetic, Yes anxious, No euphoric, No sad, No tearful, No fearful, No Labile affect present and No Flat affect present Course Vital Signs: Vital signs: Vital Signs Temperature 98.1 F 04/04/23 12:55 Pulse Rate 80 04/04/23 15:25 Respiratory Rate 18 04/04/23 15:25 Blood Pressure 141/85 04/04/23 15:25 Pulse Oximetry 100 04/04/23 15:25 Oxygen Delivery Me thod Room Air 04/04/23 14:40 MDM - Chest Pain Medical Decision Making Patient made comfortable emergency room and had extensive work-up including CBC, CMP troponin, D-dimer and x-ray. While emergency room patient made stable and more calm after IV fluid. I discussed lab and x-ray finding with the patient. Follow-up PCP recommended for further evaluation and treatment. Differential Diagnosis Likely acute massive pulmonary embolism, acute respiratory failure, acute myocardial infarction, cardiac arrest and sudden cardiac Lab Data 04/04/23 13:57 04/04/23 13:57 Radiology Impressions Chest X-Ray 04/04/23 13:05 IMPRESSION: No acute findings. Laboratory Results WBC 6.71 10^3/uL (3.29-11.43) 04/04/23 13:57 RBC 4.85 10^6/uL (3.85-5.65) 04/04/23 13:57 Hgb 15.00 g/dL (11.27-16.99) 04/04/23 13:57 Hct 46.1 % (36-47) 04/04/23 13:57 MCV 95.1 fl (85-98) 04/04/23 13:57 MCH 30.9 pg (27-33) 04/04/23 13:57 MCHC 32.5 g/dL (30-55) 04/04/23 13:57 RDW 12.6 % (12.1-15.1) 04/04/23 13:57 Plt Count 239 10^3/cmm (157-399) 04/04/23 13:57 MPV 9.5 fL (7.4-10.4) 04/04/23 13:57 Neut % (Auto) 64.8 % 04/04/23 13:57 Lymph % (Auto) 28.8 % 04/04/23 13:57 [place] % (Auto) 5.4 % 04/04/23 13:57 Eos % (Auto) 0.3 % 04/04/23 13:57 Baso % (Auto) 0.4 % 04/04/23 13:57 Neut # (Auto) 4.35 10^3/uL (1.8-7.7) 04/04/23 13:57 Lymph # (Auto) 1.9 10^3/uL (0.8-4.8) 04/04/23 13:57 [place] # (Auto) 0.4 10^3/uL (0.2-0.9) 04/04/23 13:57 Eos # (Auto) 0.0 10^3/uL (0.0-0.8) 04/04/23 13:57 Baso # (Auto) 0.0 10^3/uL (0.0-0.1) 04/04/23 13:57 Nucleated RBC % (auto) 0 % 04/04/23 13:57 Nucleated RBCs # 0.0 /100WBC 04/04/23 13:57 D-Dimer 0.34 ug/mLFEU (0-0.59) 04/04/23 13:57 Sodium 139 mmol/L (136-145) 04/04/23 13:57 Potassium 3.6 mmol/L (3.5-5.1) 04/04/23 13:57 Chloride 102 mmol/L (98-107) 04/04/23 13:57 Carbon Dioxide 26 mmol/L (22-29) 04/04/23 13:57 Anion Gap 14.6 (5-19) 04/04/23 13:57 BUN 9 mg/dL (6-20) 04/04/23 13:57 Creatinine 0.7 mg/dL (0.5-0.9) 04/04/23 13:57 GFR Calculation 95.2 mL/min (90-130) 04/04/23 13:57 Glucose 101 mg/dL (65-115) 04/04/23 13:57 Calculated Osmolality 287 mOsm/kg (285-295) 04/04/23 13:57 Calcium 10.1 mg/dL (8.5-10.5) 04/04/23 13:57 Total Bilirubin 0.6 mg/dL (0.15-1.2) 04/04/23 13:57 AST 23 U/L (0-32) 04/04/23 13:57 ALT 26 U/L (0-33) 04/04/23 13:57 Alkaline Phosphatase 58 U/L (35-105) 04/04/23 13:57 Troponin T Baseline < 6 ng/L (0-10) 04/04/23 13:57 Total Protein 7.5 g/dL (6.6-8.7) 04/04/23 13:57 Albumin 4.7 g/dL (3.5-5.2) 04/04/23 13:57 Globulin 2.8 g/dL (1.3-4.6) 04/04/23 13:57 Lipase 33 U/L (13-60) 04/04/23 13:57 HCG, Qual Negative (Negative) 04/04/23 13:58 Urine Color Yellow (Yellow) 04/04/23 13:38 Urine Appearance Clear (CLEAR) 04/04/23 13:38 Urine pH 7 (5-7) 04/04/23 13:38 Ur Specific [place] 1.000 (1.005-1.030) L 04/04/23 13:38 Urine Protein Neg (Negative) 04/04/23 13:38 Urine Glucose (UA) Norm (Normal) 04/04/23 13:38 Urine Ketones Negative (Negative) 04/04/23 13:38 Urine Blood Neg (Negative) 04/04/23 13:38 Urine Nitrate Negative (Negative) 04/04/23 13:38 Urine Bilirubin Neg (Negative) 04/04/23 13:38 Urine Urobilinogen Norm mg/dL (Negative) 04/04/23 13:38 Ur Leukocyte Esterase Negative (Negative) 04/04/23 13:38 XR interpretation done by ED provider, pending radiology final review EKG Data EKG 1: Interpretation: Tachycardia with rate of 106. Right bundle branch block noted. [place] interval 108 QRS duration [address] elevation or T wave changes. Discharge Plan Discharge Patient Disposition: Home Clinical Impression: Atypical chest pain Condition: Stable Prescriptions: No Action zonisamide 100 mg capsule 100 mg PO BEDTIME dextroamphetamine-amphetamine 10 mg capsule,extended release 24hr 1 cap PO DAILY Aleve-D Sinus and Cold 220-120 mg Tablet Extended Release 12 Hr 1 tab PO DAILY bupropion HCl 300 mg tablet extended release 24 hr 300 mg PO DAILY tretinoin 0.05 % cream 1 applic TOPICAL BEDTIME metoprolol succinate 25 mg tablet extended release 24 hr 25 mg PO DAILY Ozempic 0.25 mg or 0.5 mg (2 mg/3 mL) pen injector 0.25 mg SUBCUT Q7D Rx Instructions: on Wednesday Discharge Orders: Discharge ED (Routine); Ordered 04/04/23 Ordered By: Guera Samuel Referrals: Justin Corley MD [Primary Care Provider] - Patient Instructions: Opioid Safety, Pain Management Coding Level of Care Code ED Director Of Community Services for Karissa Lynn
--- NOTE | 2023-04-04 13:05 | XRR_ITS ---
PROCEDURE INFORMATION: Exam: XR Chest Exam date and time: 04/04/2023 1:18 PM Age: 37 years old Clinical indication: Chest pressure; Patient HX: Sudden onset RT anterior chest pain; Tachycardia; HTN TECHNIQUE: Imaging protocol: Radiologic exam of the chest. Views: 1 view. COMPARISON: CR (CHEST, ) 04/03/2023 12:41 AM FINDINGS: Lungs: Unremarkable. No consolidation. Pleural spaces: Unremarkable. No pleural effusion. No pneumothorax. Heart/Mediastinum: Unremarkable. No cardiomegaly. Bones/joints: Unremarkable. XR/XR chest 1V portable [id number] IMPRESSION: No acute findings.
--- NOTE | 2023-04-04 13:26 | ECG_ITS ---
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 [id number]
[2023-04-04 13:51] LABS: Add Urine Microscopic? NO; Charge for UA Resulting for Rev
[2023-04-04 14:05] LABS: Bilirubin Urine Neg (Negative); Blood Urine Neg (Negative); Glucose Urine UA Norm (Normal); Ketones Urine Negative (Negative); Leukocyte Esterase Urine Negative (Negative); Nitrate Urine Negative (Negative); Protein Urine Neg (Negative); Urine Appearance Clear (CLEAR); Urine Color Yellow (Yellow); Urobilinogen Urine Norm (Negative); pH Urine 7 (5-7)
[2023-04-04] MEDS: aspirin 81 mg Chew Tablet 324 MG PO (14:05)
[2023-04-04] MEDS: sodium chloride 0.9% 1,000 ML 999 ML IV (14:06)
[2023-04-04 14:08] LABS: Basophils % 0.4 %; Eosinophils % 0.3 %; Hematocrit 46.1 % (36-47); Lymphocytes # 1.9 10^3/uL (0.8-4.8); Lymphocytes % 28.8 %; Mean Corpuscular HGB Conc 32.5 g/dL (30-55); Mean Corpuscular Hemoglobin 30.9 pg (27-33); Mean Corpuscular Volume 95.1 fl (85-98); Mean Platelet Volume 9.5 fL (7.4-10.4); Monocytes # 0.4 10^3/uL (0.2-0.9); Monocytes % 5.4 %; Neutrophils # 4.35 10^3/uL (1.8-7.7); Neutrophils % 64.8 %; Nucleated Red Blood Cells % 0 %; Platelet Count 239 10^3/cmm (157-399); Red Blood Count 4.85 10^6/uL (3.85-5.65); Red Cell Distribution Width 12.6 % (12.1-15.1); White Blood Count 6.71 10^3/uL (3.29-11.43)
[2023-04-04 14:12] LABS: HCG Qualitative Urine. Negative (Negative)
[2023-04-04 14:24] LABS: D Dimer 0.34 ug/mLFEU (0-0.59)
[2023-04-04 14:27] LABS: Troponin(5th) Baseline < 6 ng/L (0-10)
[2023-04-04 14:33] LABS: Alanine Aminotransferase 26 U/L (0-33); Albumin Level 4.7 g/dL (3.5-5.2); Alkaline Phosphatase 58 U/L (35-105); Anion Gap 14.6 (5-19); Aspartate Amino Transferase 23 U/L (0-32); Blood Urea Nitrogen 9 mg/dL (6-20); Calcium 10.1 mg/dL (8.5-10.5); Carbon Dioxide 26 mmol/L (22-29); Chloride 102 mmol/L (98-107); Globulin 2.8 g/dL (1.3-4.6); Glomerular Filtration Rate 95.2 mL/min (90-130); Glucose 101 mg/dL (65-115); Lipase 33 U/L (13-60); Osmolality Calculated 287 mOsm/kg (285-295); Potassium 3.6 mmol/L (3.5-5.1); Sodium 139 mmol/L (136-145); Total Bilirubin 0.6 mg/dL (0.15-1.2); Total Protein 7.5 g/dL (6.6-8.7)
[2023-04-04 14:40] VITALS: BP 156/101; PULSE 80; O2SAT 97
[2023-04-04 15:11] VITALS: BP 141/85
[2023-04-04 15:25] VITALS: BP 141/85; PULSE 80; RESP 18; O2SAT 100
== END 2023-04-04 15:28 | disposition home or self-care (01) ==
PROVIDERS: Emergency Provider Family Medicine; PCP Family Medicine
DX: R07.89 Other chest pain (principal)
CPT/HCPCS: 36415; 71045; 80053; 81003; 81025; 83690; 84484; 85025; 85378; 93005; 99285; J7030

== ENCOUNTER → 2023-05-18 09:58 | Outpatient (BNVA) | payer MEDICARE, MEDICAID, SELFPAY | PROVIDERS: PCP Family Medicine; Visit Provider Internal Medicine | DX: R79.89 Other specified abnormal findings of blood chemistry (principal); L68.0 Hirsutism; R53.82 Chronic fatigue, unspecified; E28.2 Polycystic ovarian syndrome; D24.1 Benign neoplasm of right breast; R63.5 Abnormal weight gain; Z68.24 Body mass index [BMI] 24.0-24.9, adult; Z79.85 Long-term (current) use of injectable non-insulin antidiabetic drugs | CPT/HCPCS: 99214 ==

== ENCOUNTER → 2024-08-18 12:23 | Outpatient (BNVA) | payer MEDICARE, MEDICAID, SELFPAY | PROVIDERS: PCP Family Medicine; Visit Provider Internal Medicine | DX: R53.82 Chronic fatigue, unspecified (principal); L68.0 Hirsutism; R79.89 Other specified abnormal findings of blood chemistry; E28.2 Polycystic ovarian syndrome; D21.9 Benign neoplasm of connective and other soft tissue, unspecified; D24.1 Benign neoplasm of right breast; R63.5 Abnormal weight gain; E88.1 Lipodystrophy, not elsewhere classified | CPT/HCPCS: 36415; 82627; 83036; 84403; 99214 ==

== ENCOUNTER → 2024-10-20 09:39 | Outpatient (BNVA) | payer MEDICARE, MEDICAID, SELFPAY | PROVIDERS: PCP Family Medicine; Visit Provider Internal Medicine | DX: E28.2 Polycystic ovarian syndrome (principal); R00.0 Tachycardia, unspecified; R55 Syncope and collapse; R53.82 Chronic fatigue, unspecified; L68.0 Hirsutism; R79.89 Other specified abnormal findings of blood chemistry; R63.5 Abnormal weight gain | CPT/HCPCS: 99214 ==

== ENCOUNTER 2024-10-25 13:33 | Outpatient (CLI) | payer MEDICARE, MEDICAID, SELFPAY ==
--- NOTE | 2024-10-25 13:43 | CTR_ITS ---
PROCEDURE INFORMATION: Exam: CT Maxillofacial Without Contrast, Sinus Exam date and time: 10/25/2024 2:25 PM Age: 39 years old Clinical indication: Chronic sinusitis, bilateral ear pain TECHNIQUE: Imaging protocol: CT Maxillofacial without contrast. Focus on the sinuses. Radiation optimization: All CT scans at this facility use at least one of these dose optimization techniques: automated exposure control; mA and/or kV adjustment per patient size (includes targeted exams where dose is matched to clinical indication); or iterative reconstruction. COMPARISON: MR head wo/w con [id number] 06/12/2022 2:41 PM RADIATION DOSE METRICS: Total DLP (mGy-cm): 334.54 FINDINGS: Frontal sinuses: No air-fluid levels. Ethmoid sinuses: No air-fluid levels. Sphenoid sinuses: No air-fluid levels. Maxillary sinuses: There is a left maxillary sinus mucous retention cysts. Otherwise, the paranasal sinuses are clear. No air-fluid levels. The ostiomeatal complexes are unremarkable. The Nasal cavity: Unremarkable. Orbital cavities: Orbits are normal. Globes are unremarkable. Bones: Unremarkable. Soft tissues: Unremarkable. CT/CT sinus wo con* [id number] IMPRESSION: 1. No acute abnormality. 2. Left maxillary sinus mucous retention cyst.
== END 2024-10-25 13:34 | disposition home or self-care (01) ==
PROVIDERS: PCP Family Medicine; Visit Provider Plastic Surgery Plastic Surgery Within the Head and Neck
DX: J32.0 Chronic maxillary sinusitis (principal); M27.40 Unspecified cyst of jaw
CPT/HCPCS: 70486